=== PATIENT | male | born 1955 | race Caucasian/White ===

== ENCOUNTER → 2016-05-02 | Outpatient (CLI) | payer OTHER ==
[~2016-05-02] MED LIST: /WARF5TA PO; ASPI325T PO; ASPI81TA85 PO; CHAN0.5P PO; CIPR500T89 PO; PERC5TAB6 PO; TOPR25TA PO; zinc OR
== END ==
LOC: M SMT 08:05
PROVIDERS: ATTEND Nurse Practitioner Women's Health
DX: C61 Malignant neoplasm of prostate (principal)

== ENCOUNTER → 2018-01-31 | Outpatient (REF) | payer OTHER ==
[2018-01-31 15:10] LABS: ALBUMIN 3.9 GM/DL (3.2-5.2); ALBUMIN/GLOBULIN RATIO 1.08 (1.00-1.93); ALKALINE PHOSPHATASE 99 U/L (45-117); ALT/SGPT 33 U/L (12-78); ANION GAP 6 MEQ/L (8-16); AST/SGOT 20 U/L (7-37); BILIRUBIN,TOTAL 0.5 MG/DL (0.2-1.0); BLOOD UREA NITROGEN 21 MG/DL (7-18); CARBON DIOXIDE LEVEL 28 MEQ/L (21-32); CHLORIDE LEVEL 108 MEQ/L (98-107); CHOLESTEROL LEVEL 211 MG/DL (<200); CHOLESTEROL RISK RATIO 5.552 (<5); CREATININE FOR GFR 1.16 MG/DL (0.70-1.30); FREE T4 0.93 NG/DL (0.76-1.46); GLOMERULAR FILTRATION RATE > 60.0 (>49); GLUCOSE, FASTING 90 MG/DL (70-100); HDL CHOLESTEROL 38 MG/DL (>40); LDL CHOLESTEROL 139 MG/DL (<100); NON-HDL-C 173 MG/DL; POTASSIUM SERUM 4.8 MEQ/L (3.5-5.1); PROSTATIC SPECIFIC AG MONITOR < 0.0 NG/ML (< 4.0); SODIUM LEVEL 142 MEQ/L (136-145); TOTAL PROTEIN 7.5 GM/DL (6.4-8.2); TRIGLYCERIDES LEVEL 170 MG/DL (<150)
[2018-01-31 15:12] LABS: BASO % 0.5 % (0.0-1.0); EOS # 0.2 10^3/uL (0.0-0.50); EOS % 2.1 % (0.0-3.0); HEMATOCRIT 49.5 % (42.0-52.0); HEMOGLOBIN 16.2 g/dl (13.5-17.5); IMMATURE GRANULOCYTE % 0.5 % (0-3.0); LYMPH # 1.5 10^3/uL (1.5-4.5); LYMPH % 17.7 % (24.0-44.0); MEAN CORPUSCULAR HEMOGLOBIN 29.9 pg (27.0-33.0); MEAN CORPUSCULAR HGB CONC 32.7 g/dl (32.0-36.5); MEAN CORPUSCULAR VOLUME 91.5 fl (80.0-96.0); MONO # 0.7 10^3/uL (0.0-0.8); MONO % 7.9 % (0.0-5.0); NEUTROPHILS # 6.1 10^3/uL (1.8-7.7); NEUTROPHILS % 71.3 % (36.0-66.0); PLATELET COUNT, AUTOMATED 304 10^3/uL (150-450); RED BLOOD COUNT 5.41 10^6/uL (4.30-6.10); RED CELL DISTRIBUTION WIDTH 13.2 % (11.5-14.5); WHITE BLOOD COUNT 8.5 10^3/uL (4.0-10.0)
[2018-01-31 15:14] LABS: TOTAL 25(OH) VITAMIN D 20.1 NG/ML (30.0-100.0)
== END ==
LOC: M SFHCSACK 10:34
DX: I10 Essential (primary) hypertension (principal); E78.5 Hyperlipidemia, unspecified; Z13.29 Encounter for screening for other suspected endocrine disorder; Z13.21 Encounter for screening for nutritional disorder; Z85.46 Personal history of malignant neoplasm of prostate
CPT/HCPCS: 84443

== ENCOUNTER → 2019-07-31 | Outpatient (REF) | payer OTHER ==
[~2019-07-31] MED LIST changes: -/WARF5TA PO; +ASPI-1 PO; -ASPI325T PO; +CIPR-249 PO; -CIPR500T89 PO; +COUM1TAB17 PO; +ONE-TAB25 PO; +PERC5TAB12 PO; -PERC5TAB6 PO; +ROSU40TA4 PO; +TRIA37.53 PO
== END ==
LOC: M LAB REF 09:16
PROVIDERS: ATTEND Internal Medicine Gastroenterology
DX: R19.7 Diarrhea, unspecified (principal)

== ENCOUNTER → 2019-08-02 | Outpatient (CLI) | payer OTHER | LOC: M LABSMTC 12:45 | PROVIDERS: ATTEND Anesthesiology | DX: Z01.818 Encounter for other preprocedural examination (principal); Z11.59 Encounter for screening for other viral diseases; Z03.818 Encounter for observation for suspected exposure to other biological agents ruled out | CPT/HCPCS: C9803; U0003 ==

== ENCOUNTER 2019-08-05 10:55 | Day surgery (SDC) | payer OTHER ==
[~2019-08-05] VITALS: Ht 165.1 cm; Wt 73.5 kg
[~2019-08-05 10:55] MED LIST changes: +NS 1,000 ML IV ONE
[2019-08-05] MEDS ORDERED: propofoL 200 MG/20 ML VIAL As Ordered ONE ×2 (13:10→13:40)
[2019-08-05] MEDS ORDERED: LIDOCAINE 2% 100MG/5ML SDV (FOR ANES.) As Ordered ONE (13:10)
--- NOTE | 2019-08-05 13:46 | ROOR ---
Patient Name: Todd Olivares Procedure Date: 08/05/2019 1:25 PM Date of : 1955 Age: 63 [facility]: [facility] Gender: Male Note Status: Finalized Procedure: Total Colonoscopy to Cecum + ileoscopy + Bx Indications: Clinically significant diarrhea of unexplained origin Providers: Gerhard Sands MD Referring MD: Myles Kilgore Md Requesting Provider: Medicines: Monitored Anesthesia Care Complications: No immediate complications. Procedure: Pre-Anesthesia Assessment: - The heart rate, respiratory rate, oxygen saturations, blood pressure, adequacy of pulmonary ventilation, and response to care were monitored throughout the procedure. The Colonoscope was introduced through the anus and advanced to the terminal ileum, with identification of the appendiceal orifice and IC valve. The colonoscopy was performed without difficulty. The patient tolerated the procedure well. The quality of the bowel preparation was good. Findings: The perianal and digital rectal examinations were normal. Non-bleeding internal hemorrhoids were found during retroflexion. The hemorrhoids were small and Grade I (internal hemorrhoids that do not prolapse). Multiple small and large-mouthed diverticula were found in the recto-sigmoid colon, sigmoid colon and descending colon. The terminal ileum appeared normal. Biopsies for histology were taken with a cold forceps from the ascending colon, transverse colon, sigmoid colon and rectosigmoid colon for evaluation of microscopic colitis. The exam was otherwise without abnormality. Impression: - Non-bleeding internal hemorrhoids. - Diverticulosis in the recto-sigmoid colon, in the sigmoid colon and in the descending colon. - The examined portion of the ileum was normal. - The examination was otherwise normal. - Biopsies were taken with a cold forceps from the ascending colon, transverse colon, sigmoid colon and rectosigmoid colon for evaluation of microscopic colitis. - The exam was otherwise normal to the cecum. Recommendation: - Patient has a contact number available for emergencies. The signs and symptoms of potential delayed complications were discussed with the patient. Return to normal activities tomorrow. Written discharge instructions were provided to the patient. - High fiber diet. - Discharge patient to home. - Continue present medications. - Await pathology results. - Telephone GI clinic for pathology results in 1 week. - Repeat colonoscopy in 10 years for screening purposes. - Return to referring physician. - The findings and recommendations were discussed with the patient's family. Gerhard Sands MD Gerhard Sands MD 08/05/2019 1:46:31 PM Electronically signed by Gerhard Sands MD Number of Addenda: 0 Note Initiated On: 08/05/2019 1:25 PM Estimated Blood Loss: Estimated blood loss: none.
[2019-08-05 14:20] VITALS: BP 140/88
== END 2019-08-05 14:34 | disposition home or self-care (01) ==
LOC: M SDC 10:55
PROVIDERS: ATTEND Internal Medicine Gastroenterology
DX: K64.0 First degree hemorrhoids (principal); K57.30 Diverticulosis of large intestine without perforation or abscess without bleeding; R63.4 Abnormal weight loss; Z80.0 Family history of malignant neoplasm of digestive organs; I10 Essential (primary) hypertension; E78.49 Other hyperlipidemia; G47.30 Sleep apnea, unspecified; Z86.711 Personal history of pulmonary embolism; Z85.46 Personal history of malignant neoplasm of prostate; Z87.891 Personal history of nicotine dependence

== ENCOUNTER → 2022-11-03 | Outpatient (REF) ==
[~2022-11-03] MED LIST changes: -NS 1,000 ML IV ONE; -TRIA37.53 PO; +TRIA37.577 PO
== END ==
LOC: M PLAIMG 09:26
PROVIDERS: ATTEND Internal Medicine
DX: R06.02 Shortness of breath (principal)

== ENCOUNTER → 2023-03-01 | Outpatient (CLI) | payer MEDICARE, OTHER | LOC: M PLALAB 13:20 | PROVIDERS: ATTEND Nurse Practitioner Family | DX: J30.9 Allergic rhinitis, unspecified (principal) ==

== ENCOUNTER 2024-06-05 08:24 | Day surgery (SDC) | payer MEDICARE, OTHER ==
[~2024-06-05] VITALS: Ht 165.1 cm; Wt 71.7 kg
[2024-06-05] MEDS: LIDOCAINE 3.5 % 1ML OPHTH TOPICAL GEL OU ONE (07:00)
[2024-06-05] MEDS: OFLOXACIN 0.3 % (OCUFLOX) OPTH SOL 5ML OS ONE (07:00)
[~2024-06-05 08:24] MED LIST changes: +BALANCE OF NATURE; +CYAN100049 PO; +FERR324T21 PO; +LISI30TA4 PO; +MULTTAB61 PO; +PHENYLEPHRINE 10% OPHTH SOL 5ML OS PRN; +RED500CA PO; -ROSU40TA4 PO; +ROSU40TA81 PO; +VITA100093 PO
[2024-06-05] MEDS: CYCLOPENTOLATE 1% OPHTH SOLN 2ML BTL OS SCH (09:21)
[2024-06-05] MEDS: TROPICAMIDE 1% OPHTH SOLN 15ML OS SCH (09:21)
[2024-06-05] MEDS: PHENYLEPHRINE 2.5% OPHTH SOL 2ML OS SCH (09:21)
[2024-06-05] MEDS ORDERED: MIDAZOLAM INJ 2MG/2ML VIAL As Ordered ONE (09:47)
[2024-06-05] MEDS ORDERED: fentaNYL 100 MCG/2 ML INJECTION As Ordered ONE (09:47)
[2024-06-05] MEDS: BSS IRRIG/VANCO(10MG)/TOBRA(5MG)/EPINEPH(1:1000-0.5CC)500ML BAG-ORONLY As Ordered ONE (10:24)
[2024-06-05] MEDS: CEFUROXIME 1MG/0.1ML INTRACAMERAL INJ As Ordered ONE (10:24)
[2024-06-05] MEDS: LIDOCAINE 1% SDV 5ML VIAL As Ordered ONE (10:24)
[2024-06-05 11:11] VITALS: BP 177/94; TEMP 96.9; O2SAT 99
== END 2024-06-05 11:17 | disposition home or self-care (01) ==
LOC: M SDC 08:24
PROVIDERS: ATTEND Ophthalmology
DX: H25.12 Age-related nuclear cataract, left eye (principal); I10 Essential (primary) hypertension; E78.00 Pure hypercholesterolemia, unspecified; G47.30 Sleep apnea, unspecified; Z85.46 Personal history of malignant neoplasm of prostate; Z79.899 Other long term (current) drug therapy; Z86.711 Personal history of pulmonary embolism
CPT/HCPCS: 66984; J0697; J2250; J3010; V2632

== ENCOUNTER 2024-06-13 18:25 | Inpatient (IN) | payer OTHER, MEDICARE ==
[~2024-06-13] VITALS: Ht 165.1 cm; Wt 69.0 kg
[~2024-06-13 18:25] MED LIST changes: -PHENYLEPHRINE 10% OPHTH SOL 5ML OS PRN
[2024-06-13 19:15] LABS: BASO # 0.1 10^3/uL (0.0-0.2); BASO % 0.5 % (0.0-1.0); EOS # 0.2 10^3/uL (0.0-0.5); EOS % 2.3 % (0.0-3.0); HEMATOCRIT 41.4 % (42.0-52.0); HEMOGLOBIN 13.9 g/dl (13.5-17.5); LYMPH # 1.6 10^3/uL (1.5-5.0); LYMPH % 16.1 % (24.0-44.0); MEAN CORPUSCULAR HEMOGLOBIN 29.4 pg (27.0-33.0); MEAN CORPUSCULAR HGB CONC 33.6 g/dl (32.0-36.5); MEAN CORPUSCULAR VOLUME 87.7 fl (80.0-96.0); MONO # 0.9 10^3/uL (0.0-0.8); MONO % 8.7 % (2.0-8.0); NEUTROPHILS # 7.1 10^3/uL (1.5-8.5); NEUTROPHILS % 72.1 % (36.0-66.0); PLATELET COUNT, AUTOMATED 207 10^3/uL (150-450); RED BLOOD COUNT 4.72 10^6/uL (4.30-6.10); WHITE BLOOD COUNT 9.8 10^3/uL (4.0-10.0)
[2024-06-13 19:47] LABS: ALBUMIN 3.4 G/DL (3.2-5.2); ALKALINE PHOSPHATASE 106 U/L (40-129); ALT/SGPT 19 U/L (7.0-40); AST/SGOT 22 U/L (<34); BILIRUBIN,DIRECT 0.1 MG/DL (<0.4); BILIRUBIN,TOTAL 0.3 MG/DL (0.3-1.2); BLOOD UREA NITROGEN 18 MG/DL (9-23); CALCIUM LEVEL 8.6 MG/DL (8.3-10.6); CARBON DIOXIDE LEVEL 27 MMOL/L (20-31); CHLORIDE LEVEL 103 MMOL/L (98-107); CREATININE FOR GFR 0.98 MG/DL (0.70-1.30); GLOMERULAR FILTRATION RATE > 60.0 (>49); GLUCOSE, FASTING 86 MG/DL (74-106); POTASSIUM SERUM 4.1 MMOL/L (3.5-5.1); SODIUM LEVEL 137 MMOL/L (136-145); TOTAL PROTEIN 7.5 G/DL (5.7-8.2)
[2024-06-13] MEDS ORDERED: ISOVUE-370 76% 100ML VIAL As Ordered ONE (20:29)
[2024-06-13 20:50] LABS: INR 0.97; PARTIAL THROMBOPLASTIN TIME 27.9 SECONDS (24.8-34.2); PROTHROMBIN TIME 13.2 SECONDS (12.5-14.5)
[2024-06-13] MEDS ORDERED: SUPETAB PO (22:58)
[2024-06-13] MEDS ORDERED: LISI20TA33 PO (22:58)
[2024-06-13] MEDS ORDERED: BALANCE OF NATURE PO (22:58)
[2024-06-13] MEDS ORDERED: METO1TAB7 PO (22:58)
[2024-06-13] MEDS ORDERED: HOME MED LIST COMPLETE! XX SCH (23:00)
[2024-06-13] MEDS ORDERED: MOM 30ML SUSPENSION UDC PO PRN (23:10)
[2024-06-13] MEDS ORDERED: HEPARIN SOD (PORCINE) 5000UNITS/ML 1ML VIAL/SYRINGE IV PRN (23:10)
[2024-06-14] VITALS (18 sets, daily range): BP systolic 125–158; BP diastolic 70–98; TEMP 97.2–98.8; O2SAT 89–100
[2024-06-14] MEDS: HEPARIN DRIP 25,000 UNITS in IV 1 EA IV SCH (00:44)
[2024-06-14] MEDS: HEPARIN SOD (PORCINE) 5000UNITS/ML 1ML VIAL/SYRINGE IV ONE (00:44)
[2024-06-14 00:47] LABS: HEMATOCRIT 38.2 % (42.0-52.0); HEMOGLOBIN 13.1 g/dl (13.5-17.5); MEAN CORPUSCULAR HGB CONC 34.3 g/dl (32.0-36.5); MEAN CORPUSCULAR VOLUME 87.4 fl (80.0-96.0); PLATELET COUNT, AUTOMATED 184 10^3/uL (150-450); RED BLOOD COUNT 4.37 10^6/uL (4.30-6.10); WHITE BLOOD COUNT 9.1 10^3/uL (4.0-10.0)
[2024-06-14 06:55] LABS: HEMATOCRIT 38.2 % (42.0-52.0); HEMOGLOBIN 13.2 g/dl (13.5-17.5); MEAN CORPUSCULAR HEMOGLOBIN 30.1 pg (27.0-33.0); MEAN CORPUSCULAR HGB CONC 34.6 g/dl (32.0-36.5); PLATELET COUNT, AUTOMATED 184 10^3/uL (150-450); RED BLOOD COUNT 4.39 10^6/uL (4.30-6.10); WHITE BLOOD COUNT 8.3 10^3/uL (4.0-10.0)
[2024-06-14 07:12] LABS: INR 1.02; PROTHROMBIN TIME 13.7 SECONDS (12.5-14.5)
[2024-06-14 07:50] LABS: ALBUMIN 3.1 G/DL (3.2-5.2); ALKALINE PHOSPHATASE 102 U/L (40-129); ALT/SGPT 16 U/L (7.0-40); AST/SGOT 16 U/L (<34); BILIRUBIN,TOTAL 0.6 MG/DL (0.3-1.2); BLOOD UREA NITROGEN 14 MG/DL (9-23); CALCIUM LEVEL 8.1 MG/DL (8.3-10.6); CARBON DIOXIDE LEVEL 24 MMOL/L (20-31); CHLORIDE LEVEL 106 MMOL/L (98-107); CREATININE FOR GFR 0.92 MG/DL (0.70-1.30); GLOMERULAR FILTRATION RATE > 60.0 (>49); GLUCOSE, FASTING 88 MG/DL (74-106); POTASSIUM SERUM 4.3 MMOL/L (3.5-5.1); SODIUM LEVEL 140 MMOL/L (136-145); TOTAL PROTEIN 6.8 G/DL (5.7-8.2)
[2024-06-14] MEDS: DOCUSATE SODIUM 100MG CAPSULE PO SCH (08:23)
[2024-06-14] MEDS: METOPROLOL SUCC *XL* 25MG TAB (TopROL *XL*) PO SCH (08:23)
[2024-06-14] MEDS ORDERED: ELIQ5TAB4 PO (09:47)
[2024-06-14] MEDS ORDERED: LIDOCAINE 1% MDV 20ML VIAL As Ordered ONE (14:33)
[2024-06-14] MEDS ORDERED: ISOVUE-300 61% 100ML VIAL As Ordered ONE (14:33)
[2024-06-14] MEDS ORDERED: NS (Normal Saline) 0.9% 1,000 ML IV SCH (14:40)
[2024-06-14] MEDS: MIDAZOLAM INJ 2MG/2ML VIAL IV PRN (15:09)
[2024-06-14] MEDS: fentaNYL 100 MCG/2 ML INJECTION IV PRN (15:11)
[2024-06-14] MEDS: HEPARIN 1,000UNITS/ML 10ML VIAL (FOR RADIOLOGY & DIALYSIS ONLY) IV SCH (15:32)
[2024-06-14] MEDS: LIDOCAINE 1% MDV 20ML VIAL SC ONE (16:13)
[2024-06-14] MEDS ORDERED: ISOVUE-300 61% 100ML VIAL IV STA (16:14)
[2024-06-14] MEDS: HEPARIN 1,000UNITS/ML 10ML VIAL (FOR RADIOLOGY & DIALYSIS ONLY) IV STA (16:18)
[2024-06-14] MEDS: NS (Normal Saline) 0.9% 1,000 ML IV SCH (18:32)
[2024-06-14] MEDS: ROSUVASTATIN 10 MG TAB (CRESTOR) PO SCH (21:53)
[2024-06-15 03:56] VITALS: BP 120/79; TEMP 98.2; O2SAT 97
[2024-06-15 07:35] VITALS: BP 147/89; TEMP 98; O2SAT 95
[2024-06-15 08:11] LABS: HEMOGLOBIN 11.8 g/dl (13.5-17.5); MEAN CORPUSCULAR HEMOGLOBIN 29.6 pg (27.0-33.0); MEAN CORPUSCULAR HGB CONC 33.7 g/dl (32.0-36.5); MEAN CORPUSCULAR VOLUME 87.9 fl (80.0-96.0); PLATELET COUNT, AUTOMATED 192 10^3/uL (150-450); RED BLOOD COUNT 3.98 10^6/uL (4.30-6.10); WHITE BLOOD COUNT 7.9 10^3/uL (4.0-10.0)
[2024-06-15 08:18] LABS: BLOOD UREA NITROGEN 15 MG/DL (9-23); CARBON DIOXIDE LEVEL 24 MMOL/L (20-31); CHLORIDE LEVEL 109 MMOL/L (98-107); CREATININE FOR GFR 0.93 MG/DL (0.70-1.30); GLOMERULAR FILTRATION RATE > 60.0 (>49); GLUCOSE, FASTING 143 MG/DL (74-106); POTASSIUM SERUM 3.6 MMOL/L (3.5-5.1); SODIUM LEVEL 141 MMOL/L (136-145)
[2024-06-15 08:45] VITALS: BP 147/89
[2024-06-15] MEDS: ENOXAPARIN 100MG/1ML SYRINGE (J1650 PER 10MG) SC ONE (09:39)
[2024-06-17 13:33] LABS: CARDIOLIPIN IGA ANTIBODY 2.9 APL-U/mL (<20.0); CARDIOLIPIN IGG ANTIBODY < 2.0 GPL-U/mL (<20.0); CARDIOLIPIN IGM ANTIBODY 10.8 MPL-U/mL (<20.0)
[2024-06-18 01:02] LABS: PROTEIN C FUNCTIONAL ACTIVITY 113 % normal (70-180); PROTEIN S FUNCTIONAL ACTIVITY 96 % normal (70-150)
[2024-06-18 16:27] LABS: PHOSPHOLIPIDS LEVEL 161 mg/dL (151-264)
[2024-06-19 03:27] LABS: ANTI THROMBIN 3 ANTIGEN IMMUNO 123 % normal (80-120); ANTI THROMBIN 3 FUNCT ACTIVITY 117 % normal (80-135)
[2024-06-19 14:47] LABS: FACTOR V LEIDEN FOR MEDINET NEGATIVE
== END 2024-06-15 13:53 | disposition home or self-care (01) | DRG 163 ==
LOC: M ED 18:25 → M ED INP 23:07 → M PCU 06-14 02:40
PROVIDERS: ADMIT Family Medicine; ATTEND Student in an Organized Health Care Education/Training Program
PROC: 02CQ3ZZ Extirpation of Matter from Right Pulmonary Artery, Percutaneous Approach (ICD-10-PCS; 2024-06-14)
PROC: B246ZZZ Ultrasonography of Right and Left Heart (ICD-10-PCS; 2024-06-14)
PROC: 02CR3ZZ Extirpation of Matter from Left Pulmonary Artery, Percutaneous Approach (ICD-10-PCS; principal; 2024-06-14 16:00)
DX: I26.99 Other pulmonary embolism without acute cor pulmonale (principal); I21.A1 Myocardial infarction type 2; I82.432 Acute embolism and thrombosis of left popliteal vein; Q21.12 Patent foramen ovale; E78.5 Hyperlipidemia, unspecified; I10 Essential (primary) hypertension; G47.33 Obstructive sleep apnea (adult) (pediatric); Z98.42 Cataract extraction status, left eye; Z66 Do not resuscitate; Z96.1 Presence of intraocular lens; Z87.891 Personal history of nicotine dependence; Z79.899 Other long term (current) drug therapy; Z86.73 Personal history of transient ischemic attack (TIA), and cerebral infarction without residual deficits; Z86.718 Personal history of other venous thrombosis and embolism; Z85.46 Personal history of malignant neoplasm of prostate

== ENCOUNTER → 2024-06-17 | Outpatient (POV) | payer OTHER, MEDICARE ==
[~2024-06-17] MED LIST changes: +BALANCE OF NATURE PO; +ELIQ5TAB4 PO; +LISI20TA33 PO; +METO1TAB7 PO; +SUPETAB PO
== END ==
LOC: M IRPOV 13:11
PROVIDERS: ATTEND Radiology Diagnostic Radiology
DX: Z48.01 Encounter for change or removal of surgical wound dressing (principal)

== ENCOUNTER → 2024-07-17 | Outpatient (POV) | payer MEDICARE, OTHER ==
[~2024-07-17] VITALS: Ht 165.1 cm; Wt 70.5 kg
[2024-07-17 10:45] VITALS: BP 122/82; O2SAT 96
== END ==
LOC: M IRPOV 10:33
PROVIDERS: ATTEND Radiology Diagnostic Radiology
DX: Z48.812 Encounter for surgical aftercare following surgery on the circulatory system (principal); I26.99 Other pulmonary embolism without acute cor pulmonale; Q21.12 Patent foramen ovale; H26.9 Unspecified cataract; I10 Essential (primary) hypertension; E78.5 Hyperlipidemia, unspecified; G47.33 Obstructive sleep apnea (adult) (pediatric); Z79.01 Long term (current) use of anticoagulants; Z85.46 Personal history of malignant neoplasm of prostate; Z86.711 Personal history of pulmonary embolism; Z86.718 Personal history of other venous thrombosis and embolism

== ENCOUNTER → 2024-10-22 | Outpatient (CLI) | payer OTHER, MEDICARE ==
[~2024-10-22] MED LIST changes: +ELIQ5TAB PO
[2024-10-22 13:15] LABS: BASO # 0.1 10^3/uL (0.0-0.2); BASO % 0.9 % (0.0-1.0); EOS # 0.3 10^3/uL (0.0-0.5); EOS % 3.8 % (0.0-3.0); LYMPH # 1.5 10^3/uL (1.5-5.0); LYMPH % 22.7 % (24.0-44.0); MONO # 0.6 10^3/uL (0.0-0.8); MONO % 8.3 % (2.0-8.0); NEUTROPHILS # 4.2 10^3/uL (1.5-8.5); NEUTROPHILS % 64.0 % (36.0-66.0); PLATELET COUNT, AUTOMATED 275 10^3/uL (150-450)
[2024-10-22 13:42] LABS: CALCIUM LEVEL 8.3 MG/DL (8.3-10.6); CARBON DIOXIDE LEVEL 26.0 MMOL/L (20-31); CHLORIDE LEVEL 107.0 MMOL/L (98-107); CREATININE FOR GFR 0.96 MG/DL (0.70-1.30); GLOMERULAR FILTRATION RATE 86.6 (>49); POTASSIUM SERUM 4.2 MMOL/L (3.5-5.1); SODIUM LEVEL 142.0 MMOL/L (136-145)
== END ==
LOC: M LAB 12:41
PROVIDERS: ATTEND Internal Medicine Cardiovascular Disease
DX: Q21.12 Patent foramen ovale (principal); I10 Essential (primary) hypertension; R94.39 Abnormal result of other cardiovascular function study

== ENCOUNTER 2024-12-18 06:33 | Day surgery (SDC) | payer OTHER, MEDICARE ==
[~2024-12-18] VITALS: Ht 165.1 cm; Wt 72.0 kg
[~2024-12-18 06:33] MED LIST changes: +IBUP600T42 PO; +PHENYLEPHRINE 10% OPHTH SOL 5ML OD PRN
[2024-12-18] MEDS ORDERED: MIDAZOLAM INJ 2 MG/2 ML VIAL As Ordered ONE (06:58)
[2024-12-18] MEDS: TROPICAMIDE 1% OPHTH SOLN 15ML OD SCH (07:21)
[2024-12-18] MEDS: OFLOXACIN 0.3 % (OCUFLOX) OPTH SOL 5ML OD ONE (07:21)
[2024-12-18] MEDS: CYCLOPENTOLATE 1% OPHTH SOLN 2 ML BTL OD SCH (07:21)
[2024-12-18] MEDS: PHENYLEPHRINE 2.5% OPHTH SOL 2ML OD SCH (07:21)
[2024-12-18] MEDS: LIDOCAINE 3.5% 1 ML OPHTH TOPICAL GEL OU ONE (07:21)
[2024-12-18] MEDS: LIDOCAINE 1% SDV 5 ML VIAL As Ordered ONE (09:30)
[2024-12-18] MEDS: CEFUROXIME 1 MG/0.1 ML INTRACAMERAL INJ As Ordered ONE (09:30)
[2024-12-18] MEDS: BSS IRRIG/VANCO(10MG)/TOBRA(5MG)/EPINEPH(1:1000-0.5CC)500ML BAG-ORONLY As Ordered ONE (09:30)
[2024-12-18 09:42] VITALS: BP 127/58; TEMP 97.4; O2SAT 98
== END 2024-12-18 10:17 | disposition home or self-care (01) ==
LOC: M SDC 06:33
PROVIDERS: ATTEND Ophthalmology
DX: H25.11 Age-related nuclear cataract, right eye (principal); I10 Essential (primary) hypertension; E78.00 Pure hypercholesterolemia, unspecified; D64.9 Anemia, unspecified; G47.30 Sleep apnea, unspecified; Z79.899 Other long term (current) drug therapy; Z79.01 Long term (current) use of anticoagulants; Z86.73 Personal history of transient ischemic attack (TIA), and cerebral infarction without residual deficits; Z98.42 Cataract extraction status, left eye; Z85.46 Personal history of malignant neoplasm of prostate; Z86.711 Personal history of pulmonary embolism
CPT/HCPCS: 66984; J0697; J2250; J3010; V2632

== ENCOUNTER → 2024-12-26 | Outpatient (CLI) | payer OTHER, MEDICARE ==
[~2024-12-26] MED LIST changes: -PHENYLEPHRINE 10% OPHTH SOL 5ML OD PRN
== END ==
LOC: M LAB 16:24
PROVIDERS: ATTEND Physician Assistant
DX: C61 Malignant neoplasm of prostate (principal)

== ENCOUNTER 2025-01-27 08:33 | Emergency (ER) | payer OTHER ==
[~2025-01-27] VITALS: Ht 165.1 cm; Wt 69.7 kg
[2025-01-27 09:19] LABS: BASO # 0.0 10^3/uL (0.0-0.2); BASO % 0.4 % (0.0-1.0); EOS # 0.1 10^3/uL (0.0-0.5); EOS % 1.1 % (0.0-3.0); LYMPH # 1.6 10^3/uL (1.5-5.0); LYMPH % 19.2 % (24.0-44.0); MONO # 0.7 10^3/uL (0.0-0.8); MONO % 8.5 % (2.0-8.0); NEUTROPHILS # 5.8 10^3/uL (1.5-8.5); NEUTROPHILS % 70.6 % (36.0-66.0); PLATELET COUNT, AUTOMATED 362 10^3/uL (150-450)
[2025-01-27 09:32] LABS: ALT/SGPT 30 U/L (7.0-40); AST/SGOT 23 U/L (<34); CALCIUM LEVEL 8.6 MG/DL (8.3-10.6); CARBON DIOXIDE LEVEL 27 MMOL/L (20-31); CHLORIDE LEVEL 104 MMOL/L (98-107); CK-MB VALUE MASS < 1.0 NG/ML (<3.6); CPK CREATINE PHOSPHOKINASE 38 U/L (46-171); CREATININE FOR GFR 1.03 MG/DL (0.70-1.30); GLOMERULAR FILTRATION RATE 79.6 (>49); POTASSIUM SERUM 4.3 MMOL/L (3.5-5.1); SODIUM LEVEL 139 MMOL/L (136-145)
[2025-01-27 09:34] LABS: FREE T4 1.21 NG/DL (0.89-1.76)
[2025-01-27 09:42] LABS: INR 1.0
[2025-01-27] MEDS ORDERED: ISOVUE-370 76% 100 ML VIAL As Ordered ONE (10:01)
[2025-01-27 10:26] LABS: CPK CREATINE PHOSPHOKINASE 37 U/L (46-171)
[2025-01-27 10:27] LABS: CK-MB VALUE MASS < 1.0 NG/ML (<3.6)
[2025-01-27] MEDS ORDERED: HOME MED LIST COMPLETE! XX SCH (12:05)
[2025-01-27 12:15] VITALS: BP 113/81; TEMP 96.7; O2SAT 95
== END 2025-01-27 12:27 | disposition home or self-care (01) ==
LOC: M ED 08:33
DX: R07.89 Other chest pain (principal); I44.4 Left anterior fascicular block; I44.0 Atrioventricular block, first degree; I10 Essential (primary) hypertension; E78.5 Hyperlipidemia, unspecified; C61 Malignant neoplasm of prostate; F17.210 Nicotine dependence, cigarettes, uncomplicated; Z79.01 Long term (current) use of anticoagulants; Z79.899 Other long term (current) drug therapy; Z79.810 Long term (current) use of selective estrogen receptor modulators (SERMs)
CPT/HCPCS: 36415; 71045; 71275; 80047; 80048; 80076; 82550; 82553; 83690; 84439; 84443; 84484; 85025; 85610; 85730; 93005; 93041; 94760; 99285; Q9967